=== PATIENT | male | born 1975 | race African-American/Black ===

== ENCOUNTER 2017-02-09 18:21 | Emergency (ER) | payer SELFPAY | END 2017-02-09 19:53 | disposition home or self-care (01) | LOC: ERS 18:21 | DX: J20.9 Acute bronchitis, unspecified (principal); F17.210 Nicotine dependence, cigarettes, uncomplicated | CPT/HCPCS: 99283 ==

== ENCOUNTER 2017-06-17 20:32 | Emergency (ER) | payer SELFPAY | END 2017-06-17 23:18 | LOC: ERS 20:32 | DX: F16.129 Hallucinogen abuse with intoxication, unspecified (principal); F17.210 Nicotine dependence, cigarettes, uncomplicated | CPT/HCPCS: 99284 ==